=== PATIENT | female | born 1965 | race Caucasian/White ===

== ENCOUNTER 2016-07-05 10:24 | Inpatient (IN) | payer MEDICARE, OTHER ==
[~2016-07-05] VITALS: Ht 167.6 cm; Wt 97.8 kg
[2016-07-05] MEDS ORDERED: Flu Vaccine Quadrivalent 60 MCG/0.5 ML IM.VACC ONE (14:00)
[2016-07-05] MEDS ORDERED: SALINE FLUSH 10 ML FLUSH PRN (15:05)
[2016-07-05] MEDS ORDERED: ACETAMINOPHEN 325 MG TAB PO PRN (15:05)
[2016-07-05 16:33] VITALS: BP_SYST 118; RESP 18; TEMP 96.8
[2016-07-05] MEDS: LACT RINGERS 1,000 ML IV SCH (16:48)
[2016-07-05 16:52] VITALS: BP_SYST 138
[2016-07-05 16:55] VITALS: Ht 167.6 cm; Wt 97.8 kg
[2016-07-05] MEDS: ONDANSETRON 4 MG VIAL IV PUSH PRN ×2 (18:10→23:24)
[2016-07-05] MEDS ORDERED: *PINK BRACELET XX ONE (18:20)
[2016-07-05 20:53] VITALS: BP_SYST 118; RESP 20; TEMP 97.5
[2016-07-05] MEDS: SALINE FLUSH 10 ML FLUSH SCH (21:14)
[2016-07-05] MEDS: *HOME MEDS KEPT IN PHARMACY XX SCH (21:15)
[2016-07-05] MEDS ORDERED: MORPHINE ER 30 MG TAB PO ONE (23:30)
[2016-07-06] MEDS: LACT RINGERS 1,000 ML IV SCH ×2 (02:26→12:31)
[2016-07-06] MEDS: ONDANSETRON 4 MG VIAL IV PUSH PRN ×4 (03:29→15:48)
[2016-07-06 04:02] VITALS: BP_SYST 120; RESP 20; TEMP 97.4
[2016-07-06] MEDS: SODIUM CHLORIDE 0.9% FLUSH BAG 500 ML IV SCH ×2 (06:00→13:47)
[2016-07-06] MEDS: SALINE FLUSH 10 ML FLUSH SCH (08:00)
[2016-07-06] MEDS: *HOME MEDS KEPT IN PHARMACY XX SCH ×2 (08:00→18:16)
[2016-07-06 08:15] VITALS: BP_SYST 126; RESP 20; RESP 22; TEMP 98.2
[2016-07-06] MEDS ORDERED: PHARMACY TO DOSE MERREM XX SCH (11:30)
[2016-07-06 12:07] VITALS: BP_SYST 130; RESP 20; TEMP 98
[2016-07-06] MEDS ORDERED: LORAZEPAM 0.5 MG TAB PO PRN (13:25)
[2016-07-06] MEDS ORDERED: MORPHINE ER 30 MG TAB PO SCH (13:25)
[2016-07-06] MEDS ORDERED: SUMATRIPTAN SUC 50 MG TAB PO SCH (14:10)
[2016-07-06] MEDS ORDERED: BUPROPION SR 150 MG TAB PO SCH (14:10)
[2016-07-06] MEDS ORDERED: GABAPENTIN 600 MG TAB PO SCH (16:00)
[2016-07-06] MEDS ORDERED: Meclizine HCl 12.5 MG TAB PO SCH (16:00)
[2016-07-06 16:45] VITALS: BP_SYST 127; RESP 20; TEMP 97.8
[2016-07-06 17:12] VITALS: BP_SYST 127; RESP 20; TEMP 97.8
[2016-07-06 18:09] VITALS: BP_SYST 127; RESP 20; TEMP 97.8
== END 2016-07-06 18:29 | disposition home or self-care (01) | DRG 690 ==
LOC: ENRESERVTM → ENRESERVDT → 4NT 13:38 → ENPENDDIS 13:38
PROVIDERS: ADMIT Family Medicine; ATTEND Family Medicine
DX: N30.90 Cystitis, unspecified without hematuria (principal); E66.01 Morbid (severe) obesity due to excess calories; N20.0 Calculus of kidney; B96.20 Unspecified Escherichia coli [E. coli] as the cause of diseases classified elsewhere; Z16.24 Resistance to multiple antibiotics; N28.1 Cyst of kidney, acquired; Z68.34 Body mass index [BMI] 34.0-34.9, adult; J45.909 Unspecified asthma, uncomplicated; G89.29 Other chronic pain; M54.9 Dorsalgia, unspecified; G47.00 Insomnia, unspecified
CPT/HCPCS: 80048; 85652; 86141; 87088; 87493

== ENCOUNTER 2016-07-22 07:15 | Inpatient (IN) | payer MEDICARE, OTHER ==
[2016-07-18 14:57] VITALS: BMI 38.6
[2016-07-18 15:47] VITALS: BP_SYST 112; RESP 18; TEMP 98.9
[~2016-07-22] VITALS: Ht 167.6 cm; Wt 99.8 kg
[2016-07-22] VITALS (17 sets, daily range): BP systolic 109–156; RESP 13–25; TEMP 97.3–99.2; Ht 167.6 cm; Wt 99.8 kg
[2016-07-22] MEDS ORDERED: BUPIVACAINE 0.5% PF 30 ML NERVEBLOCK ONE (09:45)
[2016-07-22] MEDS ORDERED: ACETAMINOPHEN 1,000 MG/100 ML IV ONE ×2 (10:03→13:35)
[2016-07-22] MEDS ORDERED: DEXAMETHASONE 4 MG/ML VIAL IV ONE (10:03)
[2016-07-22] MEDS ORDERED: SUGAMMADEX 200 MG/2 ML VIAL IV ONE (10:03)
[2016-07-22] MEDS ORDERED: FENTANYL 100 MCG/2 ML AMP IV ONE (10:03)
[2016-07-22] MEDS ORDERED: ONDANSETRON 4 MG VIAL IV PUSH ONE (10:03)
[2016-07-22] MEDS ORDERED: NEOSTIGMINE 10 MG/10 ML VIAL IV ONE (10:03)
[2016-07-22] MEDS ORDERED: GLYCOPYRROLATE 0.2 MG/ML VIAL IV ONE ×2 (10:03→10:40)
[2016-07-22] MEDS ORDERED: ROCURONIUM 50 MG VIAL IV ONE (10:03)
[2016-07-22] MEDS ORDERED: PROPOFOL 50ML VIAL IV ONE (10:03)
[2016-07-22] MEDS ORDERED: LIDOCAINE 2% SYR 5 ML IV ONE (10:03)
[2016-07-22] MEDS ORDERED: KETAMINE INJ 50 MG/ML VIAL IV ONE (10:03)
[2016-07-22] MEDS ORDERED: KETOROLAC 30 MG/ML VIAL IV ONE (10:03)
[2016-07-22] MEDS ORDERED: LEVOFLOXACIN 500 MG/100 ML 100 ML IV ONE (10:35)
[2016-07-22] MEDS ORDERED: MIDAZOLAM 2 MG/2 ML INJ IV ONE (10:40)
[2016-07-22] MEDS ORDERED: LIDOCAINE 1% BUFFERED 1 ML SYR INTRADERM PRN (10:40)
[2016-07-22] MEDS ORDERED: LACT RINGERS 1,000 ML IV SCH (10:40)
[2016-07-22] MEDS: LACT RINGERS 1,000 ML IV SCH ×2 (10:48→22:41)
[2016-07-22] MEDS ORDERED: OXYCODONE 5 MG TAB PO PRN (13:35)
[2016-07-22] MEDS ORDERED: ONDANSETRON 4 MG VIAL IV PRN (13:35)
[2016-07-22] MEDS ORDERED: MEPERIDINE 25 MG/ML IV PRN (13:35)
[2016-07-22] MEDS ORDERED: MORPHINE 4 MG/ML SYR IV PRN (13:35)
[2016-07-22] MEDS ORDERED: MORPHINE 2 MG/ML SYR IV PRN (13:35)
[2016-07-22] MEDS ORDERED: ONDANSETRON 4 MG VIAL IV PUSH PRN (14:30)
[2016-07-22] MEDS ORDERED: Ibuprofen 600 MG TAB PO PRN (14:30)
[2016-07-22] MEDS: DILAUDID 1 MG/ML AMP IV PRN ×3 (15:03→15:29)
[2016-07-22] MEDS: MORPHINE 2 MG/ML SYR IV PRN ×2 (16:07→19:04)
[2016-07-22] MEDS: OXYCODONE/APAP 5/325 TAB PO PRN ×2 (16:48→21:40)
[2016-07-22] MEDS ORDERED: MISSING DOSE XX ONE (19:15)
[2016-07-22] MEDS: KETOROLAC 15 MG/ML VIAL IV PRN (20:27)
[2016-07-22] MEDS ORDERED: DIPHENHYDRAMINE 25 MG CAP PO ONE (20:50)
[2016-07-23] VITALS (8 sets, daily range): BP systolic 105–118; RESP 16–18; TEMP 98–98.3
[2016-07-23] MEDS: MORPHINE 2 MG/ML SYR IV PRN (02:25)
[2016-07-23] MEDS: KETOROLAC 15 MG/ML VIAL IV PRN ×3 (06:02→20:58)
[2016-07-23] MEDS: LACT RINGERS 1,000 ML IV SCH ×3 (06:06→23:25)
[2016-07-23] MEDS: OXYCODONE/APAP 5/325 TAB PO PRN (07:54)
[2016-07-23] MEDS ORDERED: SUMATRIPTAN SUC 50 MG TAB PO PRN (08:45)
[2016-07-23] MEDS: BUPROPION SR 150 MG TAB PO SCH (10:04)
[2016-07-23] MEDS: AMOXICILLIN/CLAV 875 MG TAB PO SCH ×2 (10:04→21:00)
[2016-07-23] MEDS: GABAPENTIN 600 MG TAB PO SCH ×3 (10:04→20:58)
[2016-07-23] MEDS: Meclizine HCl 12.5 MG TAB PO SCH ×3 (10:04→20:58)
[2016-07-23] MEDS: LORAZEPAM 0.5 MG TAB PO PRN (10:04)
[2016-07-23] MEDS: LACTOBACILLUS ACIDOPH CAP PO SCH ×3 (10:04→20:58)
[2016-07-23] MEDS: MORPHINE ER 30 MG TAB PO SCH (10:05)
[2016-07-23] MEDS ORDERED: NEB-ALBUTEROL 2.5 MG/3 ML INH PRN (11:00)
[2016-07-23] MEDS ORDERED: CETIRIZINE 10 MG TAB PO SCH (21:00)
[2016-07-24 03:33] VITALS: BP_SYST 118; RESP 18; TEMP 97.6
[2016-07-24] MEDS: KETOROLAC 15 MG/ML VIAL IV PRN ×2 (03:39→10:03)
[2016-07-24] MEDS: LACT RINGERS 1,000 ML IV SCH ×2 (06:22→07:33)
[2016-07-24 08:24] VITALS: BP_SYST 113; RESP 18; TEMP 97.4
[2016-07-24] MEDS: LORAZEPAM 0.5 MG TAB PO PRN ×2 (08:34→08:44)
[2016-07-24] MEDS: MORPHINE ER 30 MG TAB PO SCH (08:34)
[2016-07-24] MEDS: BUPROPION SR 150 MG TAB PO SCH (08:43)
[2016-07-24] MEDS: Meclizine HCl 12.5 MG TAB PO SCH (08:44)
[2016-07-24] MEDS: GABAPENTIN 600 MG TAB PO SCH (08:44)
[2016-07-24] MEDS: AMOXICILLIN/CLAV 875 MG TAB PO SCH (08:44)
[2016-07-24] MEDS: LACTOBACILLUS ACIDOPH CAP PO SCH (08:44)
[2016-07-24] MEDS: OXYCODONE/APAP 5/325 TAB PO PRN (12:20)
[2016-07-24 12:39] VITALS: BP_SYST 151; RESP 18; TEMP 98.1
[2016-07-24 14:36] VITALS: BP_SYST 151; RESP 18; TEMP 98.1
== END 2016-07-24 14:00 | disposition home or self-care (01) | DRG 661 ==
LOC: ENRESERVTM → ENRESERVDT → ENPENDDIS 10:33 → SDS 10:33 → 5THE 15:56 → UNDODISIN 07-23 19:30
PROVIDERS: ADMIT Urology; ATTEND Urology
PROC: 0TT64ZZ Resection of Right Ureter, Percutaneous Endoscopic Approach (ICD-10-PCS; 2016-07-22)
PROC: 0TT04ZZ Resection of Right Kidney, Percutaneous Endoscopic Approach (ICD-10-PCS; principal; 2016-07-22 11:45)
DX: N28.89 Other specified disorders of kidney and ureter (principal); G89.29 Other chronic pain; J45.909 Unspecified asthma, uncomplicated; G47.00 Insomnia, unspecified; Z87.442 Personal history of urinary calculi; M54.9 Dorsalgia, unspecified
CPT/HCPCS: 36415; 71020; 80048; 85025; 85610; 86850; 86900; 86901; 88307; 93005; 94799